=== PATIENT | female | born 1990 | race Two or more races ===

== ENCOUNTER 2018-10-21 16:22 | Emergency (ER) | payer BC, OTHER ==
[~2018-10-21] VITALS: Ht 160 cm; Wt 56.4 kg
[2018-10-21] MEDS ORDERED: DIPHENHYDRAMINE 50 MG/ML, 1ML ONE (17:21)
[2018-10-21] MEDS ORDERED: PROCHLORPERAZINE 5 MG/ML, 2ML ONE (17:21)
[2018-10-21] MEDS ORDERED: KETOROLAC 30 MG/1 ML ONE (17:21)
[2018-10-21] MEDS ORDERED: KETOROLAC 30 MG/1 ML IVPush ONE (17:30)
[2018-10-21] MEDS ORDERED: PROCHLORPERAZINE 5 MG/ML, 2ML IVPush ONE (17:30)
[2018-10-21] MEDS ORDERED: DIPHENHYDRAMINE 50 MG/ML, 1ML IVPush ONE (17:30)
[2018-10-21] MEDS ORDERED: DIHYDROERGOTAMINE 1 MG/ML, 1ML IM ONE (17:30)
[2018-10-21] MEDS ORDERED: SODIUM CHLORIDE FLUSH 10ML SYR IVF ONE (17:30)
[2018-10-21 18:15] VITALS: BP 107/53
== END 2018-10-21 18:32 | disposition home or self-care (01) ==
LOC: ED 18:00
DX: G43.009 Migraine without aura, not intractable, without status migrainosus (principal)
CPT/HCPCS: 96372; 96374; 96375; 99283; J0780; J1110; J1200; J1885